=== PATIENT | male | born 1970 | race Caucasian/White ===

== ENCOUNTER 2022-11-27 05:41 | Observation (INO) | payer OTHER ==
[2022-11-24 11:25] LABS: BASOPHILS # (AUTO) 0.1 (0.0-0.1); BASOPHILS % 0.9 % (0.0-1.0); EOSINOPHILS # (AUTO) 0.4 (0.0-0.4); EOSINOPHILS % 4.5 % (0.0-6.0); HEMATOCRIT 43.8 % (38.2-49.6); HEMOGLOBIN 13.7 g/dL (14.0-18.0); LYMPHOCYTES # (AUTO) 2.3 (1.0-3.2); LYMPHOCYTES % 28.6 % (18.0-39.1); MEAN CORPUSCULAR HEMOGLOBIN 28.8 pg (28-32); MEAN CORPUSCULAR HGB CONC 31.3 g/dL (31-35); MONOCYTES # (AUTO) 0.8 (0.2-0.8); MONOCYTES % 10.5 % (4.4-11.3); NEUTROPHILS # (AUTO) 4.4 (2.1-6.9); NEUTROPHILS % 55.3 % (38.7-80.0); PLATELET COUNT 230 x10e3/uL (140-360); RED BLOOD COUNT 4.76 x10e6/uL (4.3-5.7); RED CELL DISTRIBUTION WIDTH 12.6 % (11.7-14.4)
[2022-11-24 11:39] LABS: INR 0.97; PARTIAL THROMBOPLASTIN TIME 23.8 seconds (23.8-35.5); PROTHROMBIN TIME 13.1 seconds (11.9-14.5)
[2022-11-24 11:43] LABS: ANION GAP 12.6 mmol/L (8-16); BLOOD UREA NITROGEN 21 mg/dL (7-26); BUN/CREATININE RATIO 22 (6-25); CALCIUM 9.4 mg/dL (8.4-10.2); CARBON DIOXIDE 24 mmol/L (22-29); CHLORIDE 105 mmol/L (98-107); CREATININE, SERUM 0.95 mg/dL (0.72-1.25); GLUCOSE 94 mg/dL (74-118); POTASSIUM 4.6 mmol/L (3.5-5.1); SODIUM 137 mmol/L (136-145)
[~2022-11-27] VITALS: Ht 180.3 cm; Wt 110.7 kg
[~2022-11-27 05:41] MED LIST: AMLODIPINE BESY10 MG PO; ATORVASTATIN CA20 MG PO; BENICAR20 MG PO; EFFIENT10 MG PO; HUMULOG SQ; ISOSORBIDE MONO30 MG PO; LANTUS 3ML100 UNITS/ SQ; LEVOTHYROXINE112 MCG PO; METOPROLOL SUCC50 MG PO; MOUNJARO5 MG/0.5 M SQ; NKM; PROTONIX40 M1 PO; RANEXA500 MG PO; TIZANIDINE HCL4 M1 PO; TYLENOL #3 PO
[2022-11-27] MEDS ORDERED: THROMBIN FOR SOLN 5,000 UNIT VIAL ONE (06:52)
[2022-11-27] MEDS ORDERED: Vancomycin IV 1 GM VIAL ONE (06:52)
[2022-11-27] MEDS ORDERED: CEFAZOLIN SODIUM 2 GM ONE (06:56)
[2022-11-27] MEDS ORDERED: ACETAMINOPHEN 1000 MG/100 ML 100 ML IV ONE (07:25)
[2022-11-27] MEDS ORDERED: SUGAMMADEX SODIUM 200 MG/2 ML VIAL IV ONE (07:25)
[2022-11-27] MEDS ORDERED: ONDANSETRON HCL INJ 2MG/ML 2ML 2 MG/ML VIAL IV PRN (09:15)
[2022-11-27] MEDS ORDERED: PROMETHAZINE HCL (IM) 25 MG/ML VIAL IM PRN (09:15)
[2022-11-27] MEDS ORDERED: MAGNESIUM/ALUMINUM/SIMETHICONE 30 ML UDC PO PRN (09:15)
[2022-11-27] MEDS ORDERED: NON-FORMULARY MEDICATION ([Tylenol #3] 1 TAB) PO PRN (09:15)
[2022-11-27] MEDS ORDERED: HYDROMORPHONE 2MG/ML 2 MG/ML ML IV PRN (09:15)
[2022-11-27] MEDS ORDERED: ACETAMINOPHEN 325 MG TAB PO PRN (09:15)
[2022-11-27] MEDS ORDERED: CARISOPRODOL 350 MG TAB PO PRN (09:15)
[2022-11-27] MEDS ORDERED: ZOLPIDEM TARTRATE 5 MG TAB PO PRN (09:15)
[2022-11-27] MEDS ORDERED: MORPHINE SULFATE 5 MG/ML VIAL IM PRN (09:15)
[2022-11-27] MEDS ORDERED: HYDROCODON-ACE1 EA12 PO (09:27)
[2022-11-27] MEDS ORDERED: HYDROMORPHONE 1MG/1ML INJ ONE ×2 (09:45→10:05)
[2022-11-27 11:30] VITALS: BP 115/71
[2022-11-27] MEDS ORDERED: INSULIN LISPRO SQ SCH (11:30)
[2022-11-27] MEDS: INSULIN LISPRO 100 UNIT/1 ML 3ML VIAL SQ SCH ×2 (11:45→16:47)
[2022-11-27] MEDS ORDERED: ACETAMINOPHEN/CODEINE 300MG - 30MG TAB PO PRN (11:45)
[2022-11-27 12:19] VITALS: BP 115/71
[2022-11-27] MEDS ORDERED: PROPOFOL IV EMULSION 10 MG/ML 20 ML VIAL ONE (12:19)
[2022-11-27] MEDS ORDERED: DEXAMETHASONE SOD PHOS INJ 4 MG/ML SDV ONE (12:19)
[2022-11-27] MEDS ORDERED: ROCURONIUM BROMIDE 10 MG/ML 5ML VIAL IV ONE (12:19)
[2022-11-27] MEDS ORDERED: SEVOFLURANE INHAL SOLN 250 ML PEN BTL ONE (12:19)
[2022-11-27] MEDS ORDERED: POVIDONE IODINE 0.05% 0.05 % ML PO ONE (12:19)
[2022-11-27] MEDS ORDERED: LIDOCAINE HCL 2% LOCAL INJ 5 ML SDV VIAL INJ ONE (12:19)
[2022-11-27] MEDS ORDERED: ONDANSETRON HCL INJ 2MG/ML 2ML 2 MG/ML VIAL ONE (12:19)
[2022-11-27] MEDS ORDERED: EPHEDRINE SULFATE INJ 50 MG/ML VIAL ONE (12:19)
[2022-11-27] MEDS ORDERED: PHENYLEPHRINE HCL 1% 10 MG/ML VIAL ONE (12:19)
[2022-11-27] MEDS ORDERED: FENTANYL CITRATE/PF 100MCG/2 ML INJ ONE (12:56)
[2022-11-27] MEDS: LACTATED RINGER'S 1,000 ML IV SCH ×2 (13:57→22:07)
[2022-11-27] MEDS: METOPROLOL SUCCINATE 50 MG TAB XL PO SCH (16:45)
[2022-11-27] MEDS: OXYCODONE/ACETAMINOPHEN 5-325 1 EACH TABLET PO PRN (17:54)
[2022-11-27 20:00] VITALS: BP 100/70
[2022-11-27] MEDS ORDERED: INSULIN GLARGINE 100 UNITS/ML VIAL SQ SCH (21:00)
[2022-11-27] MEDS ORDERED: ATORVASTATIN 40 MG TAB PO SCH (21:00)
[2022-11-27] MEDS ORDERED: INSULIN GLARGINE SQ SCH (21:00)
[2022-11-28] VITALS: BP 118/68
[2022-11-28] MEDS: OXYCODONE/ACETAMINOPHEN 5-325 1 EACH TABLET PO PRN ×2 (01:54→08:50)
[2022-11-28] MEDS: LACTATED RINGER'S 1,000 ML IV SCH (01:55)
[2022-11-28 04:00] VITALS: BP 102/70
[2022-11-28] MEDS ORDERED: LEVOTHYROXINE SODIUM 112 MCG TAB PO SCH (06:00)
[2022-11-28 08:36] VITALS: BP 108/66
[2022-11-28] MEDS: INSULIN LISPRO 100 UNIT/1 ML 3ML VIAL SQ SCH (08:41)
[2022-11-28] MEDS: METOPROLOL SUCCINATE 50 MG TAB XL PO SCH (08:45)
[2022-11-28 08:52] VITALS: BP 106/66
[2022-11-28] MEDS ORDERED: ISOSORBIDE MONONITRATE 30 MG TAB CR PO SCH (09:00)
[2022-11-28] MEDS ORDERED: OLMESARTAN 20 MG TAB PO SCH (09:00)
[2022-11-28] MEDS ORDERED: AMLODIPINE BESYLATE 10 MG TAB PO SCH (09:00)
[2022-11-28] MEDS ORDERED: TIZANIDINE HCL 4 MG TAB PO SCH (09:00)
[2022-11-28] MEDS ORDERED: PANTOPRAZOLE SODIUM 40 MG SUSPDR.PKT PO SCH (09:00)
[2022-11-28] MEDS ORDERED: RANOLAZINE 500 MG TABSR PO SCH (09:00)
[2022-12-04] MEDS ORDERED: TIRZEPATIDE 5 MG SC SCH (09:00)
== END 2022-11-28 09:00 | disposition home or self-care (01) ==
LOC: OR 05:41 → PACU V 09:32 → MED/SURG3 11:15
PROVIDERS: ADMIT Neurological Surgery; ATTEND Neurological Surgery
DX: M51.17 Intervertebral disc disorders with radiculopathy, lumbosacral region (principal); Z20.822 Contact with and (suspected) exposure to COVID-19; Z01.818 Encounter for other preprocedural examination; I25.10 Atherosclerotic heart disease of native coronary artery without angina pectoris; I10 Essential (primary) hypertension; I25.2 Old myocardial infarction
CPT/HCPCS: 0223U; 36415 ×3; 63047; 71046; 72020; 80048; 82948 ×2; 85025; 85610; 85730; 86850; 86900; 88304; 88311; 93005; G0378 ×2; J0131; J0690 ×2; J1100; J1170; J1815; J2001; J2370; J2405; J2704; J3010; J3370; J7121 ×2

== ENCOUNTER 2022-12-15 13:56 | Outpatient (RCR) | payer OTHER ==
[~2022-12-15 13:56] MED LIST changes: +HYDROCODON-ACE1 EA12 PO
== END 2022-12-16 ==
LOC: PT 13:56
PROVIDERS: ATTEND Neurological Surgery
DX: M54.50 Low back pain, unspecified (principal)

== ENCOUNTER 2022-12-31 13:58 | Outpatient (RCR) | payer OTHER | END 2023-01-16 | LOC: PT 13:58 | PROVIDERS: ATTEND Neurological Surgery | DX: M54.50 Low back pain, unspecified (principal) ==

== ENCOUNTER → 2023-08-18 | Outpatient (RCR) | payer OTHER | LOC: PT 15:03 | PROVIDERS: ATTEND Neurological Surgery | DX: M54.50 Low back pain, unspecified (principal) ==

== ENCOUNTER 2023-09-07 14:55 | Outpatient (RCR) | payer OTHER | END 2023-09-17 | LOC: PT 14:55 | PROVIDERS: ATTEND Neurological Surgery | DX: M54.50 Low back pain, unspecified (principal) ==

== ENCOUNTER → 2024-07-08 | Outpatient (REF) | payer OTHER | LOC: US 09:45 | PROVIDERS: ATTEND Nurse Practitioner Family | DX: E03.9 Hypothyroidism, unspecified (principal) | CPT/HCPCS: 76536 ==